=== PATIENT | male | born 2000 | race Caucasian/White ===

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

== ENCOUNTER 2022-06-18 17:29 | Emergency (ER) | payer OTHER ==
[~2022-06-18 17:29] MED LIST: ABILIFY10 MG PO; EVEKEO10 MG PO; ONDANSETRON HCL4 MG PO; PROZAC20 MG PO
[2022-06-18] MEDS ORDERED: IBUPROFEN600 MG PO (22:12)
== END 2022-06-18 22:34 | disposition home or self-care (01) ==
LOC: FER 17:29
DX: M79.641 Pain in right hand (principal); M25.531 Pain in right wrist; M25.571 Pain in right ankle and joints of right foot; M79.671 Pain in right foot; W10.9XXA Fall (on) (from) unspecified stairs and steps, initial encounter; Y92.69 Other specified industrial and construction area as the place of occurrence of the external cause; Y99.0 Civilian activity done for income or pay
CPT/HCPCS: 73110; 73130; 73610; 73630